=== PATIENT | male | born 1970 | race Caucasian/White ===

== ENCOUNTER 2019-07-10 17:27 | Emergency (ER) | payer SELFPAY ==
[2019-07-10 17:38] VITALS: BP 141/84; PULSE 85; RESP 16; TEMP 36.9; O2SAT 100
--- NOTE | 2019-07-10 17:48 | ED.WOUNDLAC ---
HPI - Wound/Laceration General Chief Complaint: Wound/Laceration Stated Complaint: head laceration Time Seen by Provider: 07/10/19 17:48 Source: patient and RN notes reviewed History of Present Illness HPI narrative: Patient is a 48-year-old male that presents the urgent care with complaints of a laceration to the back of the head. Patient denies any loss of consciousness or vision changes. Patient is not currently on a blood thinner. Patient states that he was trying to get around a tight corner in his apartment and tripped over a chair, hitting his head on a sharp corner of a wall. Patient drove himself to the facility. Denies of any headache or nausea. No acute distress noted. No neuro deficits noted. Patient aware of the plan of care. Related Data Home Medications Medication Instructions Recorded Confirmed No Home Medications 07/10/19 07/10/19 Allergies Allergy/AdvReac Type Severity Reaction Status Date / Time No Known Allergies Allergy Unverified 08/16/11 18:01 Review of Systems Review of Systems: Narrative: CONSTITUTIONAL: Denies fever, chills, or sweats. EYES: Denies visual changes, redness, or discharge. ENT: Denies rhinorrhea, congestion, sore throat, or otalgia. CARDIOVASCULAR: Denies chest pain, palpitations, or edema. RESPIRATORY: Denies cough or dyspnea. GASTROINTESTINAL: Denies abdominal pain, nausea, vomiting, or diarrhea. GENITOURINARY: Denies dysuria or hematuria. SKIN: Denies rash or itching. MUSCULOSKELETAL: Denies back pain, joint pain, or myalgia. NEUROLOGIC: Denies headache, numbness, or weakness. All other systems reviewed are negative, except as documented in HPI. PMFSH Comments At the time of my signature, I reviewed and agree with the nursing past medical, surgical, social, and family history. There is no relevant family history pertinent to the patient complaint. Exam Narrative: Exam Narrative: GENERAL: This is a well-nourished, well-developed patient, in no apparent distress. HEAD: normocephalic, atraumatic. EYES: PERRL. Sclera clear/white. Vision is grossly intact. EARS: External ears normal NOSE: External nose normal with no obvious nasal discharge THROAT: Mucous membranes moist NECK: Neck supple CARDIOVASCULAR: Regular rate and rhythm without murmurs, gallops, or rubs. RESPIRATORY: Clear to auscultation. Breath sounds equal bilaterally. No wheezes, rales, or rhonchi. SKIN: 7 cm linear laceration noted to the right occipital NEURO: awake, alert, and oriented to person, place and time. There were no obvious focal neurologic abnormalities. EXTREMITIES: No clubbing, cyanosis, or edema. Course Vital Signs Vital signs: Vital Signs Temperature 98.5 F 07/10/19 17:38 Pulse Rate 85 07/10/19 17:38 Respiratory Rate 16 07/10/19 17:38 Blood Pressure 141/84 H 07/10/19 17:38 Pulse Oximetry 100 07/10/19 17:38 Temperature 98.5 F 07/10/19 17:38 Pulse Rate 85 07/10/19 17:38 Respiratory Rate 16 07/10/19 17:38 Blood Pressure 141/84 H 07/10/19 17:38 Pulse Oximetry 100 07/10/19 17:38 Reviewed?patient is informed that they may have pre-hypertension or hypertension based on a blood pressure reading in the department. I recommend the patient call the primary care provider listed on their discharge instructions or a physician of their choice this week to arrange follow-up for further evaluation of possible pre-hypertension or hypertension. Procedures Laceration Laceration 1: Site: scalp Description: linear Pre-repair: irrigated ====== Skin Level ====== Skin layer closed with: sheldon (9) ====== Subcutaneous Layer ====== ====== Muscle Layer ====== ====== Tendon Layer ====== Dressing: Wound cleansed with [employer] and normal saline with normal saline irrigation. 9 sheldon placed to the 7 cm laceration on the right occipital lobe. Patient tolerated well. MDM - Wound/Laceration MDM Narrative Medical d
[2019-07-10] MEDS: TETANUS,DIPHTHERIA,AC PERTUSSIS ADULT 0.5 ML (ADACEL) IM (18:04)
== END 2019-07-10 18:24 | disposition home or self-care (01) ==
PROVIDERS: Emergency Provider Nurse Practitioner Family; PCP Internal Medicine
DX: S01.01XA Laceration without foreign body of scalp, initial encounter (principal); W18.09XA Striking against other object with subsequent fall, initial encounter
CPT/HCPCS: 12002; 90471; 90715; 99202; G0463

== ENCOUNTER 2024-02-20 00:33 | Day surgery (SDC) | payer OTHER, SELFPAY ==
[2024-01-19 12:15] VITALS: BMI 25.9
[2024-02-07 10:26] VITALS: BMI 25.9
--- NOTE | 2024-02-19 15:17 | WPDANESEPP ---
Anes - Eval Pre Procedure Procedure: Operation Date: 02/20/24 13:00 Proposed Procedures p Esophagogastroduodenoscopy&Screen Colon - Alex Ramirez MD Date/Time: 02/19/24 15:17 Pre Op Diagnosis: GERD, Neoplasm screening Patient Data Age: 53 Gender: M Height: 1.78 m Weight: 81.8 kg Allergies Allergy/AdvReac Type Severity Reaction Status Date / Time No Known Allergies Allergy Verified 12/16/23 09:07 Home Medications Medication Instructions Recorded Confirmed Type cholecalciferol (vitamin D3) 125 125 mcg PO DAILY 11/21/23 01/19/24 History mcg (5,000 unit) capsule multivitamin with minerals-folic 1 tablet PO DAILY 01/19/24 01/19/24 History acid 0.4 mg tablet Patient hx anesthesia problems: none Family hx anesthesia problems: none Results Review: All pre-operative results and documents have been reviewed as part of the pre-operative evaluation. [facility] Past Medical History Medical History Acid reflux Aftercare following left ankle joint replacement surgery Aftercare following left shoulder joint replacement surgery Family History Family History Mother Stomach cancer Father Lung cancer Social History Social History Social History: Caffeine: Soda occasionally Smoking packs per day: 1 Smoking cigarettes per day: 20.0 Years smoked: 31 Smoking pack-years: 31.00 Smoking status: Former smoker Tobacco type: cigarettes Smoking end date: 03/26/17 Alcohol intake: current Drinks per week: 3 Alcohol use details: 1-2 drinks 3x/week Substance use: current Substance use type: marijuana Other substance usage details: daily use of marijuana Last use: Daily Do You Feel Safe in your Home?: Yes Lack of Transportation: No Difficulty w/ Childcare or Family Care: No Living arrangements: alone Occupation/Education: occupation Additional occupation/education comments: [employer] Gender identity (if verbalized by the patient): Male Sexual Orientation (if Verbalized by the Patient): Straight or Heterosexual Spiritual care concerns: No Agree to blood products: Yes Exam Day of Procedure 02/19/24 15:17
[2024-02-20 11:58] VITALS: BP 136/80; PULSE 80; RESP 16; TEMP 36; O2SAT 98; BMI 25.8
[2024-02-20] MEDS: LACTATED RINGERS 1,000 ML 150 ML IV CONT (12:10)
--- NOTE | 2024-02-20 12:37 | WPDANESEPPF ---
Anes - Initial Pre Proc Eval Procedure: Operation Date: 02/20/24 13:00 Proposed Procedures p Esophagogastroduodenoscopy&Screen Colon - Alex Ramirez MD Date/Time: 02/20/24 12:37 Surgeon: Alex Ramirez MD Pre Op Diagnosis: GERD, Neoplasm screening Patient Data Age: 53 Gender: M Height: 1.78 m Weight: 81.6 kg Last Vital Signs Temp 36.0 C L 02/20/24 11:58 Pulse 80 02/20/24 11:58 Resp 16 02/20/24 11:58 BP 136/80 02/20/24 11:58 Pulse Ox 98 02/20/24 11:58 O2 Del Method Room Air 02/20/24 11:58 Allergies Allergy/AdvReac Type Severity Reaction Status Date / Time No Known Allergies Allergy Verified 02/20/24 11:57 Home Medications Medication Instructions Recorded Confirmed Type cholecalciferol (vitamin D3) 125 125 mcg PO DAILY 11/21/23 02/20/24 History mcg (5,000 unit) capsule multivitamin with minerals-folic 1 tablet PO DAILY 01/19/24 02/20/24 History acid 0.4 mg tablet Patient hx anesthesia problems: none Family hx anesthesia problems: none Results Review: All pre-operative results and documents have been reviewed as part of the pre-operative evaluation. [facility] Past Medical History Medical History Acid reflux Aftercare following left ankle joint replacement surgery Aftercare following left shoulder joint replacement surgery Family History Family History Mother Stomach cancer Father Lung cancer Social History Social History Social History: Caffeine: Soda occasionally Smoking packs per day: 1 Smoking cigarettes per day: 20.0 Years smoked: 31 Smoking pack-years: 31.00 Smoking status: Former smoker Tobacco type: cigarettes Smoking end date: 03/26/17 Alcohol intake: current Drinks per week: 3 Alcohol use details: 1-2 drinks 3x/week Substance use: current Substance use type: marijuana Other substance usage details: daily use of marijuana Last use: Daily Do You Feel Safe in your Home?: Yes Lack of Transportation: No Difficulty w/ Childcare or Family Care: No Living arrangements: alone Occupation/Education: occupation Additional occupation/education comments: Dis[employer] Gender identity (if verbalized by the patient): Male Sexual Orientation (if Verbalized by the Patient): Straight or Heterosexual Spiritual care concerns: No Agree to blood products: Yes Anes - Eval Final PreProcedure Day of Procedure 02/20/24 12:37 Patient weight: overweight Heart: regular rate and rhythm Lungs: clear to auscultation Airway: Mallampati scale class II Neurological: alert and oriented Last oral intake: >/= 8 hours ASA classification: II Emergent: no Anesthetic plan: proceed Anesthesia type and monitoring: general GIVS and standard monitoring Results Review: All pre-operative results and documents have been reviewed as part of the pre-operative evaluation. Informed Consent: The patient's anesthetic plan and its attendant risks and benefits were discussed with the patient/family/POA. Questions were solicited and answers provided to the satisfaction of the patient/family/POA.
--- NOTE | 2024-02-20 12:39 | PM.HPGS ---
History of Present Illness History of Present Illness Consent: Risks, benefits, and alternatives have been discussed and questions answered. Patient agrees to proceed with procedure. Chief complaint: GERD, Neoplasm screening Narrative: Jamaal Alfonso is a 53 year old male with h/o GERD on tums, had EGD previously, mother had gastric cancer. Never had colonoscopy Review of Systems Review of Systems: All systems reviewed & are unremarkable except as noted in HPI and below PMFSH Past Medical History Medical History Acid reflux Aftercare following left ankle joint replacement surgery Aftercare following left shoulder joint replacement surgery Family History Family History Mother Stomach cancer Father Lung cancer Social History Social History Social History: Caffeine: Soda occasionally Smoking packs per day: 1 Smoking cigarettes per day: 20.0 Years smoked: 31 Smoking pack-years: 31.00 Smoking status: Former smoker Tobacco type: cigarettes Smoking end date: 03/26/17 Alcohol intake: current Drinks per week: 3 Alcohol use details: 1-2 drinks 3x/week Substance use: current Substance use type: marijuana Other substance usage details: daily use of marijuana Last use: Daily Do You Feel Safe in your Home?: Yes Lack of Transportation: No Difficulty w/ Childcare or Family Care: No Living arrangements: alone Occupation/Education: occupation Additional occupation/education comments: [employer] Gender identity (if verbalized by the patient): Male Sexual Orientation (if Verbalized by the Patient): Straight or Heterosexual Spiritual care concerns: No Agree to blood products: Yes Meds Home Medications and Allergies Home Medications Medication Instructions Recorded Confirmed Type cholecalciferol (vitamin D3) 125 125 mcg PO DAILY 11/21/23 02/20/24 History mcg (5,000 unit) capsule multivitamin with minerals-folic 1 tablet PO DAILY 01/19/24 02/20/24 History acid 0.4 mg tablet Allergies Allergy/AdvReac Type Severity Reaction Status Date / Time No Known Allergies Allergy Verified 02/20/24 11:57 Vital Signs Vital Signs - 24 hr 02/20/24 11:58 Temperature 96.8 F L Pulse Rate 80 Respiratory Rate 16 Blood Pressure 136/80 Pulse Oximetry 98 Oxygen Delivery Room Air Exam Const: General: comfortable and no acute distress HENMT: Face/Nose/Sinus: Normal nares present Eyes: General: appearance normal, both eyes and all related structures Neck: Neck: no JVD Resp: Auscultation: clear to auscultation bilaterally Cardio: Rate: regular rate Rhythm: regular rhythm GI: Inspection: non-distended GI Palp: Yes Soft to palpation Skin: General skin exam: normal color Neuro: General: gait normal Speech: normal speech Extrem: General: normal to inspection Psych: Mental Status: mental status grossly normal Assessment and Plan Assessment and plan (1) Screening for colon cancer: Code(s): Z12.11 - Encounter for screening for malignant neoplasm of colon Status: Acute Assessment and Plan: colonoscopy (2) GERD without esophagitis: Code(s): K21.9 - Gastro-esophageal reflux disease without esophagitis Status: Acute Assessment and Plan: egd
--- NOTE | 2024-02-20 12:53 | SUR.OPER ---
EGD start 1248 end 1251, Colonoscopy start 1256
[2024-02-20 13:07] VITALS: BP 106/59; PULSE 72; RESP 18; O2SAT 100
[2024-02-20 13:17] VITALS: BP 119/78; PULSE 74; RESP 15; O2SAT 97
[2024-02-20 13:27] VITALS: BP 120/82; PULSE 70; RESP 15; O2SAT 97
== END 2024-02-20 13:37 | disposition home or self-care (01) ==
PROVIDERS: PCP Internal Medicine; Referring Provider Internal Medicine; Visit Provider Internal Medicine Gastroenterology
PROC: 0DJ08ZZ Inspection of Upper Intestinal Tract, Via Natural or Artificial Opening Endoscopic (ICD-10-PCS; CPT 43235; principal; 2024-02-20 13:00)
DX: Z12.11 Encounter for screening for malignant neoplasm of colon (principal); D12.0 Benign neoplasm of cecum; K21.00 Gastro-esophageal reflux disease with esophagitis, without bleeding; K29.50 Unspecified chronic gastritis without bleeding; K44.9 Diaphragmatic hernia without obstruction or gangrene; F12.90 Cannabis use, unspecified, uncomplicated; Z87.891 Personal history of nicotine dependence; Z80.1 Family history of malignant neoplasm of trachea, bronchus and lung; Z80.0 Family history of malignant neoplasm of digestive organs
CPT/HCPCS: 43239; 45385; 45380; 88305; J2003; J2704; J7120